=== PATIENT | female | born 1995 | race Two or more races ===

== ENCOUNTER 2020-03-23 07:15 | Day surgery (SDC) | payer OTHER ==
[2020-03-20 09:43] LABS: APPEARANCE,URINE CLOUDY; BILIRUBIN,URINE NEGATIVE (NEGATIVE); COLOR,URINE YELLOW; GLUCOSE, URINE NEGATIVE (NEGATIVE); KETONES,URINE NEGATIVE (NEGATIVE); LEUKOCYTE ESTERASE,URINE MODERATE (NEGATIVE); NITRITE,URINE NEGATIVE (NEGATIVE); PROTEIN,URINE NEGATIVE (NEGATIVE); URINE SPECIFIC GRAVITY 1.032; UROBILINOGEN,URINE NEGATIVE mg/dL (<2.0)
[2020-03-20 09:46] LABS: ABSOLUTE BASOPHILS # (AUTO) 0.1 10^3/uL (0.0-0.2); ABSOLUTE EOSINOPHILS # (AUTO) 0.1 10^3/uL (0.0-0.6); ABSOLUTE LYMPHOCYTES (AUTO) 2.8 10^3/uL (0.5-4.7); ABSOLUTE MONOCYTES (AUTO) 0.4 10^3/uL (0.1-1.4); ABSOLUTE NEUT (AUTO) 2.8 10^3/uL (1.7-8.2); BASOPHILS % (AUTO) 1.5 % (0-2); EOSINOPHILS % (AUTO) 1.9 % (0-6); HEMATOCRIT 38.5 % (36.0-47.0); HEMOGLOBIN 13.2 g/dL (12.0-15.5); LYMPHOCYTES % (AUTO) 44.6 % (13-45); MEAN CORPUSCULAR HEMOGLOBIN 30.9 pg (27.0-33.4); MEAN CORPUSCULAR HGB CONC 34.2 g/dL (32.0-36.0); MEAN CORPUSCULAR VOLUME 90 fl (80-97); MONOCYTES % (AUTO) 7.1 % (3-13); PLATELET COUNT 296 10^3/uL (150-450); RED BLOOD COUNT 4.25 10^6/uL (3.72-5.28); RED CELL DISTRIBUTION WIDTH 12.3 % (11.5-14.0); SEGMENTED NEUTROPHILS % (AUTO) 44.9 % (42-78); TOTAL CELLS COUNTED % (AUTO) 100 %; WHITE BLOOD COUNT 6.2 10^3/uL (4.0-10.5)
[2020-03-20 09:47] LABS: ANION GAP 8 (5-19); BLOOD UREA NITROGEN 13 mg/dL (7-20); CALCIUM 9.5 mg/dL (8.4-10.2); CARBON DIOXIDE 26 mmol/L (22-30); CHLORIDE 103 mmol/L (98-107); GLUCOSE 101 mg/dL (75-110); POTASSIUM 4.1 mmol/L (3.6-5.0)
[~2020-03-23 07:15] MED LIST: DEXAMETHASONE SOD PHOSPHATE INJ 4 MG/1 ML VIAL ONE; FENTANYL CITRATE INJ/PF 100 MCG/2 ML AMPUL ONE; GENTAMICIN SULFATE 80 MG in DEXTROSE 5%-WATER 100 ML IV PRN; LACTATED RINGERS 1000 ML IV PRN; LIDOCAINE 0.5% INJ-PF (5 MG/ML) 50 ML SDV SUBCUT PRN; MIDAZOLAM 2 MG/2 ML INJ ONE; ONDANSETRON HCL INJ/PF 4 MG/2 ML SDV ONE; PROPOFOL INJ 200 MG/20 ML VIAL IV ONE
[2020-03-23] MEDS ORDERED: LIDOCAINE 1%/EPINEPHRINE INJ 20 ML VIAL ONE (08:36)
[2020-03-23] MEDS ORDERED: ONDANSETRON HCL INJ/PF 4 MG/2 ML SDV IV PRN (09:50)
[2020-03-23] MEDS ORDERED: DIPHENHYDRAMINE HCL 50 MG/ML VIAL IV PRN (09:50)
[2020-03-23] MEDS ORDERED: MEPERIDINE HCL/PF INJ 25 MG/1 ML DISP.SYRIN IV PRN (09:50)
[2020-03-23] MEDS ORDERED: FENTANYL CITRATE INJ/PF 100 MCG/2 ML AMPUL IV PRN ×3 (09:50)
[2020-03-23] MEDS ORDERED: MORPHINE SULFATE 10 MG/ML INJ IV PRN (09:50)
[2020-03-23] MEDS ORDERED: PROMETHAZINE HCL INJ 25 MG/1 ML VIAL IV PRN ×3 (09:50→11:52)
[2020-03-23] MEDS: FENTANYL CITRATE INJ/PF 100 MCG/2 ML AMPUL ONE ×2 (10:41→10:46)
--- NOTE | 2020-03-23 11:11 | Operative Report ---
Operative Report DATE OF SURGERY: 03/23/20 PREOPERATIVE DIAGNOSIS: Redundant bilateral labia minora POSTOPERATIVE DIAGNOSIS: same OPERATION: Bilateral labioplasty ANESTHESIA: GA TISSUE REMOVED OR ALTERED: Excess labia minora COMPLICATIONS: none ESTIMATED BLOOD LOSS: 100 cc INTRAOPERATIVE FINDINGS: bilateral redundant labia minor PROCEDURE: Patient was brought into the operating room placed on the table in a supine position. She was then inducted under general anesthesia. Patient was repositioned in the dorsolithotomy position. Bladder was then drained of approximately 30 cc of clear yellow urine. A bimanual pelvic exam was normal with the exception of bilateral redundant labia minora. The labia minora on the patient's left side was grasped at its tip with an Allis clamp. Using a blue marking pen lines were made on the inner and outer aspects of the labia minora. A #15 scalp was then used to remove the excess labial tissue. Various bleeding points were noted and cauderized with the Bovie. The skin edges were then approximated using interrupted 4-0 Vicaryl. These same procedures then used on the excess right labial minora tissue. This terminated the procedure and anesthesia was discontinued. The patient was then replaced in a supine postion and tranferred to the recovery in satisfactory condition. Estimated blood loss was 100 cc.
[2020-03-23] MEDS ORDERED: OXYCODONE-ACETAMINOPHEN 5-325 MG TABLET ONE (11:47)
[2020-03-23] MEDS ORDERED: OXYCODONE-ACETAMINOPHEN 5-325 MG TABLET PO PRN ×2 (11:52→11:53)
[2020-03-23 16:13] VITALS: BP 120/72
== END 2020-03-23 13:20 | disposition home or self-care (01) ==
LOC: OROUT 07:15
PROVIDERS: ATTEND Obstetrics & Gynecology
DX: N90.60 Unspecified hypertrophy of vulva (principal); Z88.0 Allergy status to penicillin; Z79.3 Long term (current) use of hormonal contraceptives; Z03.818 Encounter for observation for suspected exposure to other biological agents ruled out
CPT/HCPCS: 36415; 85025; 87635; 81025; 80048; 81001; 56620; J2250; J1100; J3010; J1580; J3490; J2405; J7060; J2704; C9803; 906